=== PATIENT | male | born 1940 | race Caucasian/White ===

== ENCOUNTER 2018-12-04 09:09 | Emergency (ER) | payer MEDICARE ==
[2018-12-04 09:17] VITALS: BP 142/81
--- NOTE | 2018-12-04 09:39 | UC ---
General HPI - HPI Summary HPI Summary: States he had a cold/bronchitis 3 weeks ago - he went to [facility] urgent care about 1.5 weeks ago and they gave him nasal spray and flonase. Neither seemed to help much. THough his cough is better. Now able to sleep better. He just seems more weak and fatigued. When he went to urgent care was when he felt lightheaded and presyncopal - no further episodes. Gets more winded with exertion. No CP. NO Palpitations. NO CP on exertion. No SOB at rest. No swelling in his legs. Has lost about 8-10 lbs over the past month. No N/V/D. No abdominal pain. No urinary s/s. No night sweats. PMHx; Hx of PAF, HTN, HLD , DM. States his sugars have been well controlled. No fevers. Meds; REviewed - History of Current Complaint Chief Complaint: UCGeneralIllness Stated Complaint: FLU LIKE SYMP Time Seen by Provider: 12/04/18 09:21 Pain Intensity: 0 - Allergy/Home Medications Allergies/Adverse Reactions: Allergies Allergy/AdvReac Type Severity Reaction Status Date / Time No Known Allergies Allergy Verified 12/04/18 09:18 PMH/Surg Hx/FS Hx/Imm Hx Previously Healthy: Yes Endocrine History: Diabetes, Dyslipidemia Cardiovascular History: Hypertension, Atrial Fibrillation - Surgical History Surgical History: Yes Surgery Procedure, Year, and Place: hydrocele and hernia repair. L hip 06/2015 Other Surgical History: Left hip replacement. - Family History Known Family History: Positive: Hypertension - Social History Alcohol Use: None Substance Use Type: None Smoking Status (MU): Never Smoked Tobacco - Immunization History Most Recent Influenza Vaccination: 2014 Most Recent Tetanus Shot: unable to determine Most Recent Pneumonia Vaccination: "maybe never" Review of Systems All Other Systems Reviewed And Are Negative: Yes Constitutional: Positive: Negative ENT: Positive: Sinus Congestion Respiratory: Positive: Cough Cardiovascular: Positive: Negative Motor: Positive: Weakness Physical Exam Triage Information Reviewed: Yes Appearance: Well-Appearing Vital Signs: Initial Vital Signs Temp 98.3 F 12/04/18 09:14 Pulse 65 12/04/18 09:14 Resp 17 12/04/18 09:14 BP 142/81 12/04/18 09:14 Pulse Ox 100 12/04/18 09:14 Vital Signs Reviewed: Yes Eyes: Positive: Conjunctiva Clear ENT: Positive: Normal ENT inspection, Pharyngeal erythema Neck: Positive: Supple, Nontender Respiratory: Positive: Chest non-tender, Normal breath sounds, Other: - diminished breath sounds, dry cough noted Cardiovascular: Positive: RRR, Other: - systolic murmur Skin: Positive: Other - no lower ext swelling Diagnostics - Radiology CXR Radiology Interpretation Completed By: Radiologist Summary of Radiographic Findings: COPD, hyperinflation. NO acute findings - EKG Cardiac Rate: NL - Nonspecific t wave changes comparison from 2016 Course/Dx - Course Course Of Treatment: This is a 78 yr old with weakness Assessment Exam unremarkable. Well appearing Could be physical deconditioning after recent illness with post viral cough EKG: NSR with t wave changes CXR: COPD no acute finding Suggested with his history that he would benefit from same day labs to rule out any cardiac etiology and I recommended that patient go to the ER to rule out anything such as a heart attack. Patient declines going to the ER and understands the risks of not going. We discussed heart attack and if he does not go to the ER. We discussed an alternative would be to get labs done today that would not include cardiac work up, which he is agreeable to. CBC, CMP, CRP ordered Dx: Post viral cough with deconditioning Plan REcommend follow up at the [place] to discuss getting a stress test Trial of albuterol inhaler with spacer - 2 puffs every 4-6 hours as needed for cough If you have any chest pain or shortness of breath, go to the ER Blood pressure slightly elevated - recommend follow up with your PCP We will contact you if any of your blood work is abnormal If you have any episodes of lightheadedness or feeling that you are going to pass out, recommend going to the ER - Diagnoses Provider Diagnosis: Post-viral cough syndrome, Physical deconditioning Discharge - Sign-Out/Discharge Documenting (check all that apply): Patient Departure All imaging exams completed and their final reports reviewed: Yes - Discharge Plan Condition: Fair Disposition: HOME Patient Education Materials: Weakness (ED) Referrals: Diane REED,Bryan Henriquez [Primary Care Provider] - Additional Instructions: [facility] Trial of albuterol inhaler with spacer - 2 puffs every 4-6 hours as needed for cough If you have any chest pain or shortness of breath, go to the ER Blood pressure slightly elevated - recommend follow up with your PCP We will contact you if any of your blood work is abnormal If you have any episodes of lightheadedness or feeling that you are going to pass out, recommend going to the ER - Billing Disposition and Condition Condition: FAIR Disposition: Home
[2018-12-04 13:34] LABS: ABS Basophils 0 10^3/ul (0-0.2); ABS Eosinophils 0.1 10^3/ul (0-0.6); ABS Monocytes 0.5 10^3/ul (0-0.8); ABS Neutrophils 5.8 10^3/ul (1.5-7.7); ABS Nucleated RBC 0 10^3/ul; Eosinophil % 1.3 %; Hematocrit 41 % (36-46); Hemoglobin 13.5 g/dL (14.0-18.0); Lymphocyte % 13.7 %; Mean Corpuscular HGB Conc 33 g/dL (31-36); Mean Corpuscular Hemoglobin 29 pg (27-31); Mean Corpuscular Volume 88 fL (80-94); Mean Platelet Volume 7.2 fL (7.4-10.4); Nucleated Red Blood Cells % 0.1; Platelet Count 346 10^3/uL (150-450); Red Blood Count 4.64 10^6 /uL (4.18-5.48); Red Cell Distribution Width 14 % (10.5-15); White Blood Count 7.4 10^3/uL (3.5-10.8)
[2018-12-04 13:36] LABS: Albumin 4.1 g/dL (3.2-5.2); Calcium 9.4 mg/dL (8.6-10.3); Potassium 4.9 mmol/L (3.5-5.0); Total Bilirubin 1.8 mg/dL (0.2-1.0)
[2018-12-04 13:42] LABS: Albumin/Globulin Ratio 1.7 (1-3); BUN/Creatinine Ratio 24.6 (8-20); C Reactive Protein 6.82 mg/L (<8.01); EGFR African American 72.1 (>60); EGFR Non-African American 59.5 (>60); Globulin 2.4 g/dL (2-4); Total Protein 6.5 g/dL (6.4-8.9)
--- NOTE | 2018-12-05 07:29 | UC ---
- Progress Note Progress Note: Reviewed blood work as available from 12/04/18, reviewed [facility] notes as available. RN to call pt to remind to f/u pcp cedric as recommended by provider 12/04/18. Blood glucose 240mg / dl (elevated) bun /creat: 29/1.18 (elevated) Go to the Emergency Department if any worse or new problems. Course/Dx - Diagnoses Provider Diagnoses: Post-viral cough syndrome, Physical deconditioning Discharge - Sign-Out/Discharge Documenting (check all that apply): Patient Departure All imaging exams completed and their final reports reviewed: Yes - Discharge Plan Condition: Fair Disposition: HOME Prescriptions: Albuterol HFA INHALER* [Ventolin HFA Inhaler*] 2 puff INH Q4H PRN #1 mdi PRN Reason: Cough Spacer/Holding Chamber (NF) [Easivent CHAMBER (NF)] 1 applic INH Q4HR PRN #1 device PRN Reason: Cough Patient Education Materials: Weakness (ED) Referrals: Diane REED,Bryan Henriquez [Primary Care Provider] - Additional Instructions: [facility] test Trial of albuterol inhaler with spacer - 2 puffs every 4-6 hours as needed for cough If you have any chest pain or shortness of breath, go to the ER Blood pressure slightly elevated - recommend follow up with your PCP We will contact you if any of your blood work is abnormal If you have any episodes of lightheadedness or feeling that you are going to pass out, recommend going to the ER - Billing Disposition and Condition Condition: FAIR Disposition: Home
== END 2018-12-04 10:47 | disposition home or self-care (01) ==
LOC: UCEAST 09:09
DX: R05 Cough (principal); M62.81 Muscle weakness (generalized); E11.9 Type 2 diabetes mellitus without complications; E78.5 Hyperlipidemia, unspecified; I10 Essential (primary) hypertension; I48.91 Unspecified atrial fibrillation; Z96.642 Presence of left artificial hip joint
CPT/HCPCS: 36415; 71046; 80053; 85025; 86140; 93005; 99212; G0463